=== PATIENT | female | born 1975 | race Caucasian/White ===

== ENCOUNTER 2017-06-29 08:06 | Observation (INO) ==
[2017-06-29] MEDS ORDERED: SODIUM CHLORIDE 0.9% 1,000 ML IV STA (08:41)
[2017-06-29] MEDS ORDERED: ONDANSETRON 4 MG/2 ML VIAL IV STA (08:41)
[2017-06-29 08:58] LABS: Apearance,Urine CLEAR (Clear); Bacteria,Urine Occasional /HPF (Few); Bilirubin,Urine Negative (Negative); Blood, Urine Negative (Negative); Glucose,Urine (UA) Negative (Negative); Ketones,Urine 20 mg/dL (Negative); Mucus,Urine Occasional /LPF (Occasional); Nitrite,Urine Negative (Negative); Protein,Urine Negative; RBC,Urine 1 /HPF (0-4); Squamous Epithelial Cell,Urine Occasional /HPF (0-10); Urine Color Yellow (Yellow); Urine Specific Gravity 1.019 (1.001-1.035); Urine Urobilinogen < 2.0 EU/DL (0.2-1.0); WBC,Urine <1 /HPF (0-6)
[2017-06-29 09:02] LABS: Basophils % 0.3 % (0.0-0.8); Eosinophils % 0.2 % (0.00-10.9); Hemoglobin 13.8 GM/DL (12.0-16.0); Immature Granulocytes % 0.5 %; Immature Granulocytes Absolute 0.06 #; Lymphocytes # 1.6 10*3/uL (1.4-4.0); Mean Corpuscular HGB Conc 36.3 GM/DL (32-36); Mean Corpuscular Hemoglobin 32 PG (27-34); Monocytes # 0.6 10*3/uL (0.11-0.8); Monocytes % 4.6 % (1.7-12.7); Neutrophils % 82.4 % (38.7-73.9); Platelet Count 267 T/CUMM (130-400); Red Blood Count 4.32 MC/CUMM (3.8-5.5); Red Cell Distribution Width 11.4 % (9.3-17.3); White Blood Count 13.3 T/CUMM (4-12)
[2017-06-29] MEDS ORDERED: ONDANSETRON 4 MG/2 ML VIAL ONE ×3 (09:13→13:05)
[2017-06-29 09:18] LABS: Albumin 3.7 G/DL (3.4-5.0); Bilirubin,Total 0.6 MG/DL (0.2-1.0); Calcium 8.9 MG/DL (8.5-10.1); Magnesium 1.8 MG/DL (1.8-2.4); Potassium 3.4 MMOL/L (3.5-5.1); Total Protein 7.3 G/DL (6.4-8.3)
[2017-06-29] MEDS ORDERED: PHENYLEPHRINE 1 MG/10 ML SYRINGE IV ONE (11:55)
[2017-06-29] MEDS ORDERED: PROPOFOL 200 MG/20 ML VIAL IV ONE (11:55)
[2017-06-29] MEDS ORDERED: GLYCOPYRROLATE 0.4 MG/2 ML VIAL ONE (11:55)
[2017-06-29] MEDS ORDERED: DEXAMETHASONE 10 MG/1 ML VIAL ONE (11:55)
[2017-06-29] MEDS ORDERED: KETOROLAC 30 MG/1 ML VIAL ONE (11:55)
[2017-06-29] MEDS ORDERED: NEOSTIGMINE 10 MG/10 ML VIAL ONE (11:55)
[2017-06-29] MEDS ORDERED: SUCCINYLCHOLINE 200 MG/10 ML VIAL ONE (11:55)
[2017-06-29] MEDS ORDERED: LIDOCAINE 1% 5 ML VIAL ONE (11:55)
[2017-06-29] MEDS ORDERED: ROCURONIUM 100 MG/10 ML VIAL IV ONE (11:55)
[2017-06-29] MEDS ORDERED: HYDROmorphone 2 MG/1 ML VIAL ONE (12:02)
[2017-06-29] MEDS: HYDROmorphone 2 MG/1 ML VIAL IV PRN ×3 (12:03→22:14)
[2017-06-29] MEDS ORDERED: ACETAMINOPHEN 325 MG TABLET PO PRN (12:29)
[2017-06-29] MEDS ORDERED: ONDANSETRON 4 MG/2 ML VIAL IV PRN (12:29)
[2017-06-29] MEDS ORDERED: LIDOCAINE 1%/EPI INJ 20 ML VIAL ONE (16:27)
[2017-06-29] MEDS ORDERED: TISSUE ADHESIVE 1 EACH APPLICATOR TOP ONE (16:27)
[2017-06-29] MEDS ORDERED: BUPIVACAINE 0.25% 50 ML VIAL ONE (16:27)
[2017-06-29] MEDS ORDERED: ceFAZolin 1,000 MG VIAL ONE (17:25)
[2017-06-29] MEDS ORDERED: MIDAZOLAM 2 MG/2 ML VIAL ONE (18:20)
[2017-06-29] MEDS ORDERED: SEVOFLURANE 1 UNIT/15 MINUTE INH ONE (18:20)
[2017-06-29] MEDS ORDERED: fentaNYL 100 MCG/2 ML VIAL ONE (18:21)
[2017-06-29] MEDS ORDERED: LACTATED RINGERS 1,000 ML IV ONE (18:21)
[2017-06-30] MEDS: HYDROmorphone 2 MG/1 ML VIAL IV PRN (07:15)
[2017-06-30] MEDS ORDERED: PANTOPRAZOLE 40 MG TABLET PO SCH (09:00)
[2017-06-30 11:36] VITALS: BP 108/63
== END 2017-06-30 12:12 | disposition home or self-care (01) ==
LOC: N.EDINP 08:06 → N.ED 08:06 → N.EDINP 13:45 → N.3E 13:56
PROVIDERS: ADMIT Surgery; ATTEND Surgery